=== PATIENT | male | born 1950 | race Caucasian/White ===

== ENCOUNTER 2018-01-13 21:52 | Inpatient (IN) | payer MEDICARE, BC ==
[2018-01-13 23:00] LABS: ADD MAN DIFF? NO
[2018-01-13 23:05] LABS: WHITE BLOOD COUNT 12.3 10^3/ul (4.8-10.8)
[2018-01-13 23:05] LABS: BASOPHIL # 0.1 10^3/ul (0.0-0.1); BASOPHILS % 0.4 % (0.0-2.0); EOSINOPHILS # 0.4 10^3/ul (0.0-0.5); HEMATOCRIT 40.7 % (42.0-52.0); HEMOGLOBIN 13.6 g/dl (14.0-18.0); LYMPHOCYTES # 1.9 10^3/ul (0.8-2.9); MEAN CORPUSCULAR HEMOGLOBIN 32.9 pg (29.0-33.0); MEAN CORPUSCULAR HGB CONC 33.4 g/dl (32.0-37.0); MEAN CORPUSCULAR VOLUME 98.5 fl (82.0-101.0); MEAN PLATELET VOLUME 10.7 fl (7.4-10.4); MONOCYTE # 0.8 10^3/ul (0.3-0.9); MONOCYTES % 6.7 % (0.0-11.0); NEUTROPHIL # 9.2 10^3/ul (1.6-7.5); NEUTROPHILS % 74.5 % (39.0-77.0); PLATELET COUNT 255 10^3/UL (140-415); RED BLOOD COUNT 4.13 10^6/ul (4.70-6.10); RED CELL DISTRIBUTION WIDTH 12.1 % (11.5-14.5)
[2018-01-13 23:24] LABS: ALANINE AMINOTRANSFERASE 36 IU/L (13-69); ALBUMIN 4.2 g/dl (3.3-4.9); ALKALINE PHOSPHATASE 94 IU/L (42-121); ANION GAP 12 (8-16); ASPARTATE AMINO TRANSFERASE 25 IU/L (15-46); BILIRUBIN,INDIRECT 0.5 mg/dl (0-1.1); BILIRUBIN,TOTAL 0.5 mg/dl (0.2-1.3); BLOOD UREA NITROGEN 49 mg/dl (7-20); CALCIUM 9.8 mg/dl (8.4-10.2); CARBON DIOXIDE 22 mmol/L (21-31); CHLORIDE 107 mmol/L (97-110); CREATININE 3.13 mg/dl (0.61-1.24); GLUCOSE 120 mg/dl (70-220); POTASSIUM 3.8 mmol/L (3.5-5.1); SODIUM 137 mmol/L (135-144); TOTAL PROTEIN 7.2 g/dl (6.1-8.1)
[2018-01-13 23:26] LABS: ACETAMINOPHEN < 10.0 ug/ml (10.0-30.0); ETHANOL < 10.0 mg/dl; SALICYLATE < 1.0 mg/dl (5.0-30.0)
[2018-01-13 23:35] LABS: TROPONIN-I 0.027 ng/ml (0.000-0.120)
[2018-01-14] MEDS: DEXTROSE 5%-0.45% NACL 1,000 ML IV ×2 (06:24→16:34)
[2018-01-14] MEDS ORDERED: DEXTROSE 50% 50 ML SYRINGE IV ×2 (06:30)
[2018-01-14] MEDS ORDERED: GLUCOSE GEL 15 GRAM TUBE BUCCAL (06:30)
[2018-01-14] MEDS ORDERED: GLUCOSE GEL 15 GRAM TUBE PO ×2 (06:30)
[2018-01-14] MEDS ORDERED: GLUCAGON 1 MG INJ IM (06:30)
[2018-01-14] MEDS: INSULIN ASPART [NOVOLOG] 3 ML PEN SC ×4 (08:00→21:00)
[2018-01-14 08:39] LABS: ADD MAN DIFF? NO
[2018-01-14 08:44] LABS: BASOPHILS % 0.4 % (0.0-2.0); EOSINOPHILS # 0.3 10^3/ul (0.0-0.5); EOSINOPHILS % 2.9 % (0.0-7.0); HEMATOCRIT 41.5 % (42.0-52.0); HEMOGLOBIN 13.7 g/dl (14.0-18.0); LYMPHOCYTES # 1.7 10^3/ul (0.8-2.9); LYMPHOCYTES % 16.2 % (15.0-51.0); MEAN CORPUSCULAR HEMOGLOBIN 32.7 pg (29.0-33.0); MONOCYTE # 0.8 10^3/ul (0.3-0.9); MONOCYTES % 7.4 % (0.0-11.0); NEUTROPHIL # 7.8 10^3/ul (1.6-7.5); NEUTROPHILS % 72.8 % (39.0-77.0); PLATELET COUNT 265 10^3/UL (140-415); RED BLOOD COUNT 4.19 10^6/ul (4.70-6.10); RED CELL DISTRIBUTION WIDTH 12.1 % (11.5-14.5)
[2018-01-14 08:44] LABS: WHITE BLOOD COUNT 10.6 10^3/ul (4.8-10.8)
[2018-01-14] MEDS: QUETIAPINE 25 MG TAB PO (08:51)
[2018-01-14] MEDS: ACCU-CHEK XX ×5 (08:53→22:15)
[2018-01-14 09:04] LABS: ALANINE AMINOTRANSFERASE 38 IU/L (13-69); ALBUMIN 4.5 g/dl (3.3-4.9); ALBUMIN/GLOBULIN RATIO 1.55; ALKALINE PHOSPHATASE 102 IU/L (42-121); ANION GAP 13 (8-16); ASPARTATE AMINO TRANSFERASE 24 IU/L (15-46); BILIRUBIN,INDIRECT 0.6 mg/dl (0-1.1); BILIRUBIN,TOTAL 0.6 mg/dl (0.2-1.3); BLOOD UREA NITROGEN 44 mg/dl (7-20); CALCIUM 10.2 mg/dl (8.4-10.2); CARBON DIOXIDE 23 mmol/L (21-31); CHLORIDE 111 mmol/L (97-110); CREATININE 2.91 mg/dl (0.61-1.24); GLUCOSE 141 mg/dl (70-220); POTASSIUM 3.7 mmol/L (3.5-5.1); SODIUM 143 mmol/L (135-144); TOTAL PROTEIN 7.4 g/dl (6.1-8.1)
[2018-01-14 09:14] LABS: HEMOGLOBIN A1C 6.6 % (0-5.9)
[2018-01-14] MEDS ORDERED: hydrALAzine 20 MG INJ IV (12:30)
[2018-01-14] MEDS: CEFTRIAXONE 1 GM/50 ML (PMX) 50 ML IVPB (12:34)
[2018-01-14] MEDS ORDERED: HEPARIN 5,000 UNIT/0.5 ML VIAL SC (14:00)
[2018-01-14] MEDS: DABIGATRAN 75 MG CAP PO ×2 (14:22→22:20)
[2018-01-14 16:57] LABS: ADD UMIC YES; UR ASCORBIC ACID NEGATIVE (NEGATIVE); UR BILIRUBIN (Dip) NEGATIVE (NEGATIVE); UR BLOOD (Dip) 1+ mg/dL (NEGATIVE); UR CLARITY CLEAR (CLEAR); UR COLOR STRAW (YELLOW); UR GLUCOSE (Dip) 2+ mg/dL (NEGATIVE); UR KETONES (Dip) NEGATIVE (NEGATIVE); UR LEUKOCYTE ESTERASE (Dip) NEGATIVE Leu/ul (NEGATIVE); UR NITRITE (Dip) NEGATIVE (NEGATIVE); UR RBC 0 /HPF (0-5); UR SPECIFIC GRAVITY (Dip) 1.005 (1.003-1.030); UR TOTAL PROTEIN (Dip) 2+ mg/dl (NEGATIVE); UR UROBILINOGEN (Dip) NEGATIVE (NEGATIVE); UR WBC 2 /HPF (0-5)
[2018-01-14 17:16] LABS: CREATININE,URINE RANDOM 38.31 mg/dl (20-370)
[2018-01-14 17:16] LABS: SODIUM,URINE RANDOM 18 mmol/L (30-90)
[2018-01-14 17:19] LABS: AMPHETAMINE/METHAMPHETAMINE Negative (NEGATIVE); BARBITURATES Negative (NEGATIVE); BENZODIAZEPINES Negative (NEGATIVE); CANNABINOIDS Negative (NEGATIVE); COCAINE Negative (NEGATIVE); OPIATES Negative (NEGATIVE)
[2018-01-14] MEDS: LABETALOL 100 MG TAB PO (21:00)
[2018-01-14] MEDS ORDERED: CHLORPROMAZINE 10 MG TAB PO (21:00)
[2018-01-14] MEDS ORDERED: DABIGATRAN 75 MG CAP PO (21:00)
[2018-01-14] MEDS: CHLORPROMAZINE 25 MG TAB PO (22:20)
[2018-01-14] MEDS: ATORVASTATIN 40 MG TAB PO (22:23)
[2018-01-15] MEDS: INSULIN ASPART [NOVOLOG] 3 ML PEN SC ×4 (08:00→22:38)
[2018-01-15] MEDS: DABIGATRAN 75 MG CAP PO ×2 (08:51→22:53)
[2018-01-15] MEDS: LABETALOL 100 MG TAB PO ×2 (08:51→21:00)
[2018-01-15] MEDS: FENOFIBRATE 48 MG TAB PO (08:53)
[2018-01-15] MEDS ORDERED: CHLORPROMAZINE 10 MG TAB PO (09:00)
[2018-01-15 09:54] LABS: ANION GAP 10 (8-16); BLOOD UREA NITROGEN 34 mg/dl (7-20); CALCIUM 10.2 mg/dl (8.4-10.2); CARBON DIOXIDE 25 mmol/L (21-31); CHLORIDE 116 mmol/L (97-110); CREATININE 2.59 mg/dl (0.61-1.24); GLUCOSE 135 mg/dl (70-220); MAGNESIUM 2.6 mg/dl (1.7-2.5); PHOSPHORUS 2.8 mg/dl (2.5-4.9); POTASSIUM 3.8 mmol/L (3.5-5.1); SODIUM 147 mmol/L (135-144)
[2018-01-15] MEDS: DEXTROSE 5%-0.45% NACL 1,000 ML IV (11:47)
[2018-01-15] MEDS: NICOTINE (14 MG/24 HR) PATCH TRANSDERM (13:00)
[2018-01-15] MEDS: ACCU-CHEK XX (22:41)
[2018-01-15] MEDS: CHLORPROMAZINE 25 MG TAB PO (22:52)
[2018-01-15] MEDS: ATORVASTATIN 40 MG TAB PO (22:53)
[2018-01-16] MEDS: HALOPERIDOL 5 MG INJ IM ×2 (00:28→06:17)
[2018-01-16 08:10] LABS: ADD MAN DIFF? NO
[2018-01-16 08:21] LABS: BASOPHIL # 0.1 10^3/ul (0.0-0.1); BASOPHILS % 0.4 % (0.0-2.0); EOSINOPHILS # 0.5 10^3/ul (0.0-0.5); EOSINOPHILS % 3.3 % (0.0-7.0); HEMATOCRIT 43.7 % (42.0-52.0); HEMOGLOBIN 14.2 g/dl (14.0-18.0); LYMPHOCYTES # 2.2 10^3/ul (0.8-2.9); LYMPHOCYTES % 15.3 % (15.0-51.0); MEAN CORPUSCULAR HEMOGLOBIN 32.6 pg (29.0-33.0); MEAN CORPUSCULAR HGB CONC 32.5 g/dl (32.0-37.0); MEAN CORPUSCULAR VOLUME 100.5 fl (82.0-101.0); MEAN PLATELET VOLUME 11.4 fl (7.4-10.4); MONOCYTE # 1.1 10^3/ul (0.3-0.9); MONOCYTES % 7.6 % (0.0-11.0); NEUTROPHIL # 10.3 10^3/ul (1.6-7.5); PLATELET COUNT 255 10^3/UL (140-415); RED BLOOD COUNT 4.35 10^6/ul (4.70-6.10); RED CELL DISTRIBUTION WIDTH 12.5 % (11.5-14.5)
[2018-01-16 08:21] LABS: WHITE BLOOD COUNT 14.1 10^3/ul (4.8-10.8)
[2018-01-16] MEDS: LABETALOL 100 MG TAB PO ×2 (08:33→21:00)
[2018-01-16] MEDS: FENOFIBRATE 48 MG TAB PO (08:33)
[2018-01-16] MEDS: DABIGATRAN 75 MG CAP PO ×2 (08:33→21:19)
[2018-01-16] MEDS: NICOTINE (14 MG/24 HR) PATCH TRANSDERM (08:34)
[2018-01-16] MEDS: INSULIN ASPART [NOVOLOG] 3 ML PEN SC ×4 (08:36→21:25)
[2018-01-16 08:38] LABS: ANION GAP 10 (8-16); BLOOD UREA NITROGEN 31 mg/dl (7-20); CALCIUM 10.5 mg/dl (8.4-10.2); CARBON DIOXIDE 23 mmol/L (21-31); CHLORIDE 119 mmol/L (97-110); CREATININE 2.59 mg/dl (0.61-1.24); GLUCOSE 150 mg/dl (70-220); MAGNESIUM 2.6 mg/dl (1.7-2.5); PHOSPHORUS 2.9 mg/dl (2.5-4.9); POTASSIUM 4.3 mmol/L (3.5-5.1); SODIUM 148 mmol/L (135-144)
[2018-01-16] MEDS: DEXTROSE 5%-0.45% NACL 1,000 ML IV ×2 (08:41→17:36)
[2018-01-16] MEDS ORDERED: DIPHENHYDRAMINE 25 MG CAP PO (09:30)
[2018-01-16] MEDS ORDERED: traZODone 50 MG TAB PO (09:30)
[2018-01-16] MEDS ORDERED: CHLORPROMAZINE 10 MG TAB PO (11:00)
[2018-01-16] MEDS: LITHIUM CARBONATE 300 MG CAP PO ×2 (11:26→21:19)
[2018-01-16] MEDS: CHLORPROMAZINE 25 MG TAB PO ×2 (12:48→21:19)
[2018-01-16] MEDS: ATORVASTATIN 40 MG TAB PO (21:19)
[2018-01-17] MEDS: ACCU-CHEK XX (01:34)
[2018-01-17] MEDS: DEXTROSE 5%-0.45% NACL 1,000 ML IV ×2 (01:35→11:59)
[2018-01-17 05:42] LABS: ADD MAN DIFF? NO
[2018-01-17 05:59] LABS: BASOPHILS % 0.2 % (0.0-2.0); EOSINOPHILS # 0.3 10^3/ul (0.0-0.5); EOSINOPHILS % 1.3 % (0.0-7.0); HEMOGLOBIN 14.1 g/dl (14.0-18.0); LYMPHOCYTES # 1.4 10^3/ul (0.8-2.9); LYMPHOCYTES % 6.7 % (15.0-51.0); MEAN CORPUSCULAR HEMOGLOBIN 33.1 pg (29.0-33.0); MEAN CORPUSCULAR HGB CONC 32.8 g/dl (32.0-37.0); MEAN CORPUSCULAR VOLUME 100.9 fl (82.0-101.0); MEAN PLATELET VOLUME 11.7 fl (7.4-10.4); MONOCYTES % 5.1 % (0.0-11.0); NEUTROPHIL # 17.5 10^3/ul (1.6-7.5); NEUTROPHILS % 85.7 % (39.0-77.0); PLATELET COUNT 233 10^3/UL (140-415); RED BLOOD COUNT 4.26 10^6/ul (4.70-6.10); RED CELL DISTRIBUTION WIDTH 12.5 % (11.5-14.5)
[2018-01-17 05:59] LABS: WHITE BLOOD COUNT 20.4 10^3/ul (4.8-10.8)
[2018-01-17 06:30] LABS: ANION GAP 9 (8-16); BLOOD UREA NITROGEN 32 mg/dl (7-20); CALCIUM 10.4 mg/dl (8.4-10.2); CARBON DIOXIDE 24 mmol/L (21-31); CHLORIDE 120 mmol/L (97-110); CREATININE 2.64 mg/dl (0.61-1.24); GLUCOSE 185 mg/dl (70-220); MAGNESIUM 2.5 mg/dl (1.7-2.5); PHOSPHORUS 2.3 mg/dl (2.5-4.9); POTASSIUM 4.2 mmol/L (3.5-5.1); SODIUM 149 mmol/L (135-144)
[2018-01-17] MEDS: INSULIN ASPART [NOVOLOG] 3 ML PEN SC ×4 (07:52→21:51)
[2018-01-17 07:53] LABS: LITHIUM 1.4 mmol/L (0.6-1.3)
[2018-01-17] MEDS ORDERED: CHLORPROMAZINE 10 MG TAB PO (09:00)
[2018-01-17] MEDS: CHLORPROMAZINE 25 MG TAB PO ×2 (09:19→21:52)
[2018-01-17] MEDS: DABIGATRAN 75 MG CAP PO ×2 (09:20→21:36)
[2018-01-17] MEDS: FENOFIBRATE 48 MG TAB PO (09:20)
[2018-01-17] MEDS: LITHIUM CARBONATE 300 MG CAP PO ×2 (09:20→21:35)
[2018-01-17] MEDS: LABETALOL 100 MG TAB PO ×2 (09:21→21:37)
[2018-01-17] MEDS: NICOTINE (14 MG/24 HR) PATCH TRANSDERM (09:21)
[2018-01-17] MEDS: CEFTRIAXONE 1 GM/50 ML (PMX) 50 ML IVPB (11:32)
[2018-01-17] MEDS ORDERED: ALBUTEROL/IPRATROPIUM (NEB) 3 ML AMP HHN (12:30)
[2018-01-17] MEDS: AZITHROMYCIN 500MG/NS (PMX) 250 ML IVPB (13:51)
[2018-01-17] MEDS: ALBUTEROL/IPRATROPIUM (NEB) 3 ML AMP HHN ×2 (14:18→20:37)
[2018-01-17] MEDS ORDERED: BISACODYL 10 MG SUPP PR (15:30)
[2018-01-17 15:49] LABS: ADD UMIC YES; UR ASCORBIC ACID NEGATIVE (NEGATIVE); UR BILIRUBIN (Dip) NEGATIVE (NEGATIVE); UR BLOOD (Dip) 1+ mg/dL (NEGATIVE); UR CLARITY CLEAR (CLEAR); UR COLOR STRAW (YELLOW); UR GLUCOSE (Dip) 2+ mg/dL (NEGATIVE); UR KETONES (Dip) NEGATIVE (NEGATIVE); UR LEUKOCYTE ESTERASE (Dip) NEGATIVE Leu/ul (NEGATIVE); UR NITRITE (Dip) NEGATIVE (NEGATIVE); UR RBC 0 /HPF (0-5); UR SPECIFIC GRAVITY (Dip) 1.004 (1.003-1.030); UR TOTAL PROTEIN (Dip) 2+ mg/dl (NEGATIVE); UR UROBILINOGEN (Dip) NEGATIVE (NEGATIVE); UR WBC 0 /HPF (0-5)
[2018-01-17 16:18] LABS: CREATININE,URINE RANDOM 31.75 mg/dl (20-370)
[2018-01-17 16:18] LABS: SODIUM,URINE RANDOM 22 mmol/L (30-90)
[2018-01-17 18:33] LABS: OSMOLALITY,URINE 159 mOsm/kg (250-1200)
[2018-01-17] MEDS: ATORVASTATIN 40 MG TAB PO (21:36)
[2018-01-18] MEDS: DEXTROSE 5%-0.45% NACL 1,000 ML IV (01:00)
[2018-01-18] MEDS: ACCU-CHEK XX (01:48)
[2018-01-18 05:58] LABS: ADD MAN DIFF? NO
[2018-01-18 06:22] LABS: BASOPHIL # 0.1 10^3/ul (0.0-0.1); BASOPHILS % 0.2 % (0.0-2.0); EOSINOPHILS # 0.5 10^3/ul (0.0-0.5); EOSINOPHILS % 2.2 % (0.0-7.0); HEMATOCRIT 47.9 % (42.0-52.0); HEMOGLOBIN 14.8 g/dl (14.0-18.0); LYMPHOCYTES # 1.1 10^3/ul (0.8-2.9); LYMPHOCYTES % 5.1 % (15.0-51.0); MEAN CORPUSCULAR HEMOGLOBIN 32.1 pg (29.0-33.0); MEAN CORPUSCULAR HGB CONC 30.9 g/dl (32.0-37.0); MEAN CORPUSCULAR VOLUME 103.9 fl (82.0-101.0); MEAN PLATELET VOLUME 12.3 fl (7.4-10.4); MONOCYTE # 1.1 10^3/ul (0.3-0.9); MONOCYTES % 5.2 % (0.0-11.0); NEUTROPHIL # 18.4 10^3/ul (1.6-7.5); NEUTROPHILS % 85.6 % (39.0-77.0); PLATELET COUNT 176 10^3/UL (140-415); RED BLOOD COUNT 4.61 10^6/ul (4.70-6.10)
[2018-01-18 06:22] LABS: WHITE BLOOD COUNT 21.5 10^3/ul (4.8-10.8)
[2018-01-18 06:30] LABS: ANION GAP 11 (8-16); BLOOD UREA NITROGEN 28 mg/dl (7-20); CALCIUM 10.8 mg/dl (8.4-10.2); CARBON DIOXIDE 23 mmol/L (21-31); CHLORIDE 123 mmol/L (97-110); CREATININE 2.71 mg/dl (0.61-1.24); GLUCOSE 185 mg/dl (70-220); MAGNESIUM 2.6 mg/dl (1.7-2.5); PHOSPHORUS 2.3 mg/dl (2.5-4.9); POTASSIUM 4.4 mmol/L (3.5-5.1); SODIUM 153 mmol/L (135-144)
[2018-01-18 07:03] LABS: LITHIUM 1.5 mmol/L (0.6-1.3)
[2018-01-18] MEDS: INSULIN ASPART [NOVOLOG] 3 ML PEN SC ×4 (07:54→21:00)
[2018-01-18] MEDS: ALBUTEROL/IPRATROPIUM (NEB) 3 ML AMP HHN ×3 (08:06→19:30)
[2018-01-18] MEDS: FENOFIBRATE 48 MG TAB PO (08:51)
[2018-01-18] MEDS: LITHIUM CARBONATE 300 MG CAP PO (08:52)
[2018-01-18] MEDS: DABIGATRAN 75 MG CAP PO ×2 (08:52→21:10)
[2018-01-18] MEDS: LABETALOL 100 MG TAB PO ×2 (08:55→21:12)
[2018-01-18] MEDS: HYDROCHLOROTHIAZIDE 25 MG TAB PO (08:55)
[2018-01-18] MEDS: NICOTINE (14 MG/24 HR) PATCH TRANSDERM (08:56)
[2018-01-18] MEDS: DEXTROSE 5% 1,000 ML IV ×2 (08:56→17:00)
[2018-01-18] MEDS: CHLORPROMAZINE 25 MG TAB PO ×2 (09:04→21:08)
[2018-01-18] MEDS: CEFTRIAXONE 1 GM/50 ML (PMX) 50 ML IVPB (09:06)
[2018-01-18] MEDS: BUDESONIDE (NEB) 0.5MG/2ML AMP HHN ×2 (13:40→19:30)
[2018-01-18 15:39] LABS: ANION GAP 10 (8-16); BLOOD UREA NITROGEN 31 mg/dl (7-20); CALCIUM 10.3 mg/dl (8.4-10.2); CARBON DIOXIDE 20 mmol/L (21-31); CHLORIDE 119 mmol/L (97-110); CREATININE 2.88 mg/dl (0.61-1.24); GLUCOSE 210 mg/dl (70-220); POTASSIUM 4.4 mmol/L (3.5-5.1); SODIUM 145 mmol/L (135-144)
[2018-01-18] MEDS: AZITHROMYCIN 500MG/NS (PMX) 250 ML IVPB (16:47)
[2018-01-18] MEDS: LITHIUM CARBONATE 150 MG CAP PO (21:09)
[2018-01-18] MEDS: ATORVASTATIN 40 MG TAB PO (21:10)
[2018-01-19] MEDS: ACCU-CHEK XX (02:00)
[2018-01-19] MEDS: HYDROCHLOROTHIAZIDE 25 MG TAB PO (05:33)
[2018-01-19 06:28] LABS: ADD MAN DIFF? NO
[2018-01-19 06:37] LABS: BASOPHIL # 0.1 10^3/ul (0.0-0.1); BASOPHILS % 0.4 % (0.0-2.0); EOSINOPHILS # 0.5 10^3/ul (0.0-0.5); EOSINOPHILS % 2.4 % (0.0-7.0); LYMPHOCYTES # 1.5 10^3/ul (0.8-2.9); LYMPHOCYTES % 7.5 % (15.0-51.0); MEAN CORPUSCULAR HEMOGLOBIN 33.1 pg (29.0-33.0); MEAN CORPUSCULAR HGB CONC 30.6 g/dl (32.0-37.0); MEAN CORPUSCULAR VOLUME 108.2 fl (82.0-101.0); MEAN PLATELET VOLUME 13.3 fl (7.4-10.4); MONOCYTE # 1.3 10^3/ul (0.3-0.9); MONOCYTES % 6.8 % (0.0-11.0); NEUTROPHIL # 16.1 10^3/ul (1.6-7.5); NEUTROPHILS % 81.4 % (39.0-77.0); PLATELET COUNT 143 10^3/UL (140-415); POSITIVE DIFF @See below; RED BLOOD COUNT 4.53 10^6/ul (4.70-6.10); RED CELL DISTRIBUTION WIDTH 12.8 % (11.5-14.5)
[2018-01-19 06:37] LABS: WHITE BLOOD COUNT 19.7 10^3/ul (4.8-10.8)
[2018-01-19 07:35] LABS: ANION GAP 14 (8-16); BLOOD UREA NITROGEN 33 mg/dl (7-20); CARBON DIOXIDE 21 mmol/L (21-31); CHLORIDE 121 mmol/L (97-110); CREATININE 3.18 mg/dl (0.61-1.24); GLUCOSE 172 mg/dl (70-220); MAGNESIUM 2.7 mg/dl (1.7-2.5); PHOSPHORUS 2.7 mg/dl (2.5-4.9); SODIUM 151 mmol/L (135-144)
[2018-01-19] MEDS: ALBUTEROL/IPRATROPIUM (NEB) 3 ML AMP HHN ×3 (07:45→19:59)
[2018-01-19] MEDS: BUDESONIDE (NEB) 0.5MG/2ML AMP HHN ×2 (07:46→19:59)
[2018-01-19 07:51] LABS: LITHIUM 1.4 mmol/L (0.6-1.3)
[2018-01-19] MEDS: INSULIN ASPART [NOVOLOG] 3 ML PEN SC ×5 (08:11→21:13)
[2018-01-19] MEDS: NICOTINE (14 MG/24 HR) PATCH TRANSDERM (09:42)
[2018-01-19] MEDS: CHLORPROMAZINE 25 MG TAB PO ×2 (09:43→21:10)
[2018-01-19] MEDS: FENOFIBRATE 48 MG TAB PO (09:43)
[2018-01-19] MEDS: DABIGATRAN 75 MG CAP PO ×2 (09:44→21:10)
[2018-01-19] MEDS: LABETALOL 100 MG TAB PO ×2 (09:44→21:11)
[2018-01-19] MEDS: LITHIUM CARBONATE 150 MG CAP PO ×2 (09:44→21:10)
[2018-01-19] MEDS: CEFTRIAXONE 1 GM/50 ML (PMX) 50 ML IVPB (10:01)
[2018-01-19] MEDS: DEXTROSE 5% 1,000 ML IV ×2 (10:01→19:16)
[2018-01-19 11:48] LABS: ANION GAP 11 (8-16); BLOOD UREA NITROGEN 34 mg/dl (7-20); CALCIUM 11.1 mg/dl (8.4-10.2); CARBON DIOXIDE 23 mmol/L (21-31); CHLORIDE 121 mmol/L (97-110); CREATININE 3.15 mg/dl (0.61-1.24); GLUCOSE 199 mg/dl (70-220); POTASSIUM 4.4 mmol/L (3.5-5.1); SODIUM 151 mmol/L (135-144)
[2018-01-19] MEDS: NYSTATIN SUSP 5 ML CUP PO ×3 (14:03→21:10)
[2018-01-19] MEDS: AZITHROMYCIN 500MG/NS (PMX) 250 ML IVPB (14:03)
[2018-01-19] MEDS: ATORVASTATIN 40 MG TAB PO (21:10)
[2018-01-20] MEDS: ACCU-CHEK XX (02:00)
[2018-01-20] MEDS: DEXTROSE 5% 1,000 ML IV ×2 (06:01→15:25)
[2018-01-20] MEDS: HYDROCHLOROTHIAZIDE 25 MG TAB PO (06:02)
[2018-01-20 06:38] LABS: ADD MAN DIFF? NO
[2018-01-20 06:49] LABS: BASOPHIL # 0.1 10^3/ul (0.0-0.1); BASOPHILS % 0.3 % (0.0-2.0); EOSINOPHILS # 0.6 10^3/ul (0.0-0.5); EOSINOPHILS % 3.9 % (0.0-7.0); HEMOGLOBIN 13.9 g/dl (14.0-18.0); LYMPHOCYTES # 1.4 10^3/ul (0.8-2.9); MEAN CORPUSCULAR HEMOGLOBIN 32.8 pg (29.0-33.0); MEAN CORPUSCULAR HGB CONC 31.6 g/dl (32.0-37.0); MEAN CORPUSCULAR VOLUME 103.8 fl (82.0-101.0); MEAN PLATELET VOLUME 12.8 fl (7.4-10.4); MONOCYTE # 1.1 10^3/ul (0.3-0.9); MONOCYTES % 7.3 % (0.0-11.0); NEUTROPHILS % 78.5 % (39.0-77.0); PLATELET COUNT 243 10^3/UL (140-415); RED BLOOD COUNT 4.24 10^6/ul (4.70-6.10); RED CELL DISTRIBUTION WIDTH 12.7 % (11.5-14.5)
[2018-01-20 06:49] LABS: WHITE BLOOD COUNT 15.3 10^3/ul (4.8-10.8)
[2018-01-20 07:40] LABS: ANION GAP 12 (8-16); BLOOD UREA NITROGEN 39 mg/dl (7-20); CARBON DIOXIDE 23 mmol/L (21-31); CHLORIDE 117 mmol/L (97-110); CREATININE 2.99 mg/dl (0.61-1.24); GLUCOSE 224 mg/dl (70-220); MAGNESIUM 2.6 mg/dl (1.7-2.5); PHOSPHORUS 3.4 mg/dl (2.5-4.9); POTASSIUM 4.3 mmol/L (3.5-5.1); SODIUM 148 mmol/L (135-144)
[2018-01-20] MEDS: ALBUTEROL/IPRATROPIUM (NEB) 3 ML AMP HHN ×3 (08:05→19:31)
[2018-01-20] MEDS: BUDESONIDE (NEB) 0.5MG/2ML AMP HHN ×2 (08:11→19:32)
[2018-01-20] MEDS: INSULIN ASPART [NOVOLOG] 3 ML PEN SC ×4 (08:53→21:11)
[2018-01-20] MEDS: LABETALOL 100 MG TAB PO ×2 (09:00→21:06)
[2018-01-20] MEDS: CHLORPROMAZINE 25 MG TAB PO ×2 (10:31→21:04)
[2018-01-20] MEDS: DABIGATRAN 75 MG CAP PO ×2 (10:31→21:05)
[2018-01-20] MEDS: NYSTATIN SUSP 5 ML CUP PO ×4 (10:32→21:10)
[2018-01-20] MEDS: AMILORIDE 5 MG TAB PO (10:32)
[2018-01-20] MEDS: FENOFIBRATE 48 MG TAB PO (10:32)
[2018-01-20] MEDS: NICOTINE (14 MG/24 HR) PATCH TRANSDERM (10:33)
[2018-01-20] MEDS: AZITHROMYCIN 250 MG TAB PO (12:38)
[2018-01-20] MEDS: CEFPODOXIME 200 MG TAB PO (12:38)
[2018-01-20 13:34] LABS: LITHIUM 1.1 mmol/L (0.6-1.3)
[2018-01-20] MEDS: LITHIUM CARBONATE 150 MG CAP PO (21:05)
[2018-01-20] MEDS: ATORVASTATIN 40 MG TAB PO (21:06)
[2018-01-21] MEDS: ACCU-CHEK XX (02:00)
[2018-01-21] MEDS: HYDROCHLOROTHIAZIDE 25 MG TAB PO (05:35)
[2018-01-21] MEDS: ALBUTEROL/IPRATROPIUM (NEB) 3 ML AMP HHN ×3 (07:44→19:54)
[2018-01-21] MEDS: BUDESONIDE (NEB) 0.5MG/2ML AMP HHN ×2 (07:58→20:04)
[2018-01-21] MEDS: NYSTATIN SUSP 5 ML CUP PO ×4 (08:20→20:53)
[2018-01-21] MEDS: NICOTINE (14 MG/24 HR) PATCH TRANSDERM (08:21)
[2018-01-21] MEDS: LABETALOL 100 MG TAB PO ×2 (08:21→21:00)
[2018-01-21] MEDS: CEFPODOXIME 200 MG TAB PO (08:21)
[2018-01-21] MEDS: CHLORPROMAZINE 25 MG TAB PO ×2 (08:22→20:52)
[2018-01-21] MEDS: AZITHROMYCIN 250 MG TAB PO (08:22)
[2018-01-21] MEDS: DABIGATRAN 75 MG CAP PO ×2 (08:22→20:53)
[2018-01-21] MEDS: AMILORIDE 5 MG TAB PO (08:22)
[2018-01-21] MEDS: INSULIN ASPART [NOVOLOG] 3 ML PEN SC ×4 (08:27→22:27)
[2018-01-21 09:09] LABS: ADD MAN DIFF? NO
[2018-01-21 09:16] LABS: WHITE BLOOD COUNT 10.9 10^3/ul (4.8-10.8)
[2018-01-21 09:16] LABS: BASOPHIL # 0.1 10^3/ul (0.0-0.1); BASOPHILS % 0.5 % (0.0-2.0); EOSINOPHILS # 0.5 10^3/ul (0.0-0.5); EOSINOPHILS % 4.8 % (0.0-7.0); HEMATOCRIT 48.2 % (42.0-52.0); HEMOGLOBIN 15.2 g/dl (14.0-18.0); LYMPHOCYTES # 1.6 10^3/ul (0.8-2.9); LYMPHOCYTES % 14.3 % (15.0-51.0); MEAN CORPUSCULAR HGB CONC 31.5 g/dl (32.0-37.0); MEAN CORPUSCULAR VOLUME 101.5 fl (82.0-101.0); MEAN PLATELET VOLUME 12.9 fl (7.4-10.4); MONOCYTE # 0.9 10^3/ul (0.3-0.9); MONOCYTES % 8.5 % (0.0-11.0); NEUTROPHIL # 7.8 10^3/ul (1.6-7.5); NEUTROPHILS % 71.6 % (39.0-77.0); PLATELET COUNT 208 10^3/UL (140-415); RED BLOOD COUNT 4.75 10^6/ul (4.70-6.10); RED CELL DISTRIBUTION WIDTH 12.6 % (11.5-14.5)
[2018-01-21] MEDS: FENOFIBRATE 48 MG TAB PO (09:16)
[2018-01-21 09:38] LABS: ANION GAP 14 (8-16); BLOOD UREA NITROGEN 45 mg/dl (7-20); CALCIUM 10.8 mg/dl (8.4-10.2); CARBON DIOXIDE 23 mmol/L (21-31); CHLORIDE 110 mmol/L (97-110); CREATININE 2.73 mg/dl (0.61-1.24); GLUCOSE 207 mg/dl (70-220); MAGNESIUM 2.5 mg/dl (1.7-2.5); POTASSIUM 5.2 mmol/L (3.5-5.1); SODIUM 142 mmol/L (135-144)
[2018-01-21 17:11] LABS: ANION GAP 15 (8-16); BLOOD UREA NITROGEN 52 mg/dl (7-20); CALCIUM 10.7 mg/dl (8.4-10.2); CARBON DIOXIDE 22 mmol/L (21-31); CHLORIDE 105 mmol/L (97-110); GLUCOSE 243 mg/dl (70-220); POTASSIUM 4.8 mmol/L (3.5-5.1); SODIUM 137 mmol/L (135-144)
[2018-01-21 18:48] LABS: LITHIUM 0.4 mmol/L (0.6-1.3)
[2018-01-21] MEDS: ATORVASTATIN 40 MG TAB PO (20:53)
[2018-01-21] MEDS: LITHIUM CARBONATE 150 MG CAP PO (20:53)
[2018-01-22] MEDS: ACCU-CHEK XX (02:00)
[2018-01-22] MEDS: INSULIN ASPART [NOVOLOG] 3 ML PEN SC ×3 (02:45→12:30)
[2018-01-22] MEDS: HYDROCHLOROTHIAZIDE 25 MG TAB PO (05:58)
[2018-01-22 06:40] LABS: ADD MAN DIFF? NO
[2018-01-22 06:43] LABS: WHITE BLOOD COUNT 10.2 10^3/ul (4.8-10.8)
[2018-01-22 06:43] LABS: BASOPHIL # 0.1 10^3/ul (0.0-0.1); BASOPHILS % 0.6 % (0.0-2.0); EOSINOPHILS # 0.5 10^3/ul (0.0-0.5); EOSINOPHILS % 4.8 % (0.0-7.0); HEMATOCRIT 43.8 % (42.0-52.0); HEMOGLOBIN 14.4 g/dl (14.0-18.0); LYMPHOCYTES # 1.8 10^3/ul (0.8-2.9); MEAN CORPUSCULAR HEMOGLOBIN 32.4 pg (29.0-33.0); MEAN CORPUSCULAR HGB CONC 32.9 g/dl (32.0-37.0); MEAN CORPUSCULAR VOLUME 98.4 fl (82.0-101.0); MEAN PLATELET VOLUME 12.2 fl (7.4-10.4); MONOCYTES % 10.2 % (0.0-11.0); NEUTROPHIL # 6.7 10^3/ul (1.6-7.5); NEUTROPHILS % 65.7 % (39.0-77.0); PLATELET COUNT 273 10^3/UL (140-415); RED BLOOD COUNT 4.45 10^6/ul (4.70-6.10)
[2018-01-22 07:19] LABS: ANION GAP 12 (8-16); BLOOD UREA NITROGEN 54 mg/dl (7-20); CALCIUM 10.8 mg/dl (8.4-10.2); CARBON DIOXIDE 24 mmol/L (21-31); CHLORIDE 107 mmol/L (97-110); CREATININE 2.61 mg/dl (0.61-1.24); GLUCOSE 173 mg/dl (70-220); MAGNESIUM 2.5 mg/dl (1.7-2.5); PHOSPHORUS 3.8 mg/dl (2.5-4.9); POTASSIUM 4.1 mmol/L (3.5-5.1); SODIUM 139 mmol/L (135-144)
[2018-01-22 07:56] LABS: LITHIUM 0.9 mmol/L (0.6-1.3)
[2018-01-22] MEDS: ALBUTEROL/IPRATROPIUM (NEB) 3 ML AMP HHN (08:00)
[2018-01-22] MEDS: BUDESONIDE (NEB) 0.5MG/2ML AMP HHN (08:18)
[2018-01-22] MEDS: CHLORPROMAZINE 25 MG TAB PO (10:23)
[2018-01-22] MEDS: AMILORIDE 5 MG TAB PO (10:24)
[2018-01-22] MEDS: CEFPODOXIME 200 MG TAB PO (10:24)
[2018-01-22] MEDS: DABIGATRAN 75 MG CAP PO (10:25)
[2018-01-22] MEDS: AZITHROMYCIN 250 MG TAB PO (10:27)
[2018-01-22] MEDS: LABETALOL 100 MG TAB PO (10:27)
[2018-01-22] MEDS: FENOFIBRATE 48 MG TAB PO (10:28)
[2018-01-22] MEDS: NYSTATIN SUSP 5 ML CUP PO (10:28)
[2018-01-22] MEDS: NICOTINE (14 MG/24 HR) PATCH TRANSDERM (10:42)
[2018-01-22] MEDS ORDERED: FUROSEMIDE 40 MG TAB PO (11:00)
[2018-01-27 14:04] LABS: CREATININE, RANDOM URINE 45 mg/dL (20-370); MICROALBUMIN 26.7 mg/dL; MICROALBUMIN/CREATININE RATIO 593 (<30)
[2018-01-27 14:06] LABS: CREATININE, RANDOM URINE 38 mg/dL (20-370); MICROALBUMIN 27.8 mg/dL; MICROALBUMIN/CREATININE RATIO 732 (<30); PTH CALCIUM 10.3 mg/dL (8.6-10.3); PTH INTACT 89 pg/mL (14-64)
== END 2018-01-22 12:55 | disposition home health service (06) | DRG 91 ==
LOC: 5EC 01-20 14:27 → E/R 21:52 → 6WM 01-16 11:30 → 5EC 01-21 13:35 → MS4 01-14 01:34
DX: G92 Toxic encephalopathy (principal); J18.9 Pneumonia, unspecified organism; N17.9 Acute kidney failure, unspecified; N18.4 Chronic kidney disease, stage 4 (severe); E87.0 Hyperosmolality and hypernatremia; B48.8 Other specified mycoses; E87.2 Acidosis; E87.1 Hypo-osmolality and hyponatremia; N25.1 Nephrogenic diabetes insipidus; E11.22 Type 2 diabetes mellitus with diabetic chronic kidney disease; I48.91 Unspecified atrial fibrillation; I12.9 Hypertensive chronic kidney disease with stage 1 through stage 4 chronic kidney disease, or unspecified chronic kidney disease; F31.9 Bipolar disorder, unspecified; E78.5 Hyperlipidemia, unspecified; D64.9 Anemia, unspecified; Z79.4 Long term (current) use of insulin; Z79.01 Long term (current) use of anticoagulants; Z95.0 Presence of cardiac pacemaker
CPT/HCPCS: 36415; 70450; 71045; 76775; 80048; 80053; 80178; 80307; 81001; 81003; 82043; 82306; 82962; 83036; 83735; 83935; 83970; 84100; 84155; 84300; 84443; 84484; 85025; 87040; 92526; 92610; 93005; 94640; 94664; 97110; 97116; 97161; 97530; 99285-25; G0378